=== PATIENT | female | born 1995 | race Caucasian/White ===

== ENCOUNTER 2020-08-25 22:58 | Observation (INO) ==
[2020-08-25 23:36] LABS: Basophils # 0.1 10*3/uL (0.0-0.2); Basophils % 0.5 % (0.0-0.8); Eosinophils # 0.1 10*3/uL (0.0-0.87); Eosinophils % 0.5 % (0.00-10.9); Hematocrit 38.9 VOL% (35.7-47.0); Hemoglobin 13.2 GM/DL (12.0-16.0); Immature Granulocytes % 0.6 %; Immature Granulocytes Absolute 0.11 #; Lymphocytes # 2.5 10*3/uL (1.4-4.0); Lymphocytes % 14.8 % (21.3-54.2); Mean Corpuscular HGB Conc 33.9 GM/DL (32-36); Mean Corpuscular Volume 82.9 FL (87-102); Monocytes % 5.1 % (1.7-12.7); Neutrophils % 78.5 % (38.7-73.9); Platelet Count 466 T/CUMM (130-400); Red Blood Count 4.69 MC/CUMM (3.8-5.5); Red Cell Distribution Width 14.3 % (9.3-17.3)
[2020-08-25] MEDS ORDERED: MORPHINE 4 MG/1 ML VIAL IV STA (23:54)
[2020-08-25] MEDS ORDERED: ONDANSETRON 4 MG/2 ML VIAL IV STA (23:54)
[2020-08-25] MEDS ORDERED: SODIUM CHLORIDE 0.9% 1,000 ML IV STA (23:54)
[2020-08-26 00:01] LABS: Alanine Aminotransferase 58 U/L (13-56); Albumin 3.5 G/DL (3.4-5.0); Alkaline Phosphatase 120 U/L (45-117); Aspartate Amino Transferase 24 U/L (0-37); Bilirubin,Total < 0.39 MG/DL (0.2-1.0); Blood Urea Nitrogen 16 MG/DL (7-18); Calcium 9.4 MG/DL (8.5-10.1); Estimated Glom Filtration Rate 99 ML/MIN; Glucose 120 MG/DL (74-106); Osmolality,Calculated 271.1 MOS/KG (273-304); Total Protein 7.8 G/DL (6.4-8.3)
[2020-08-26 00:07] LABS: Bacteria,Urine Occasional /HPF (Few); Bilirubin,Urine Negative (Negative); Blood, Urine Negative (Negative); Glucose,Urine (UA) Negative (Negative); Ketones,Urine Negative (Negative); Mucus,Urine Occasional /LPF (Occasional); Nitrite,Urine Negative (Negative); Protein,Urine Negative; RBC,Urine <1 /HPF (0-4); Squamous Epithelial Cell,Urine Occasional /HPF (0-10); Urine Appearance Slightly Hazy (Clear); Urine Color Yellow (Yellow); Urine Specific Gravity 1.012 (1.001-1.035); Urine Urobilinogen < 2.0 EU/DL (0.2-1.0); WBC,Urine 1 /HPF (0-6)
[2020-08-26] MEDS ORDERED: HYDROmorphone 2 MG/1 ML VIAL ONE (00:42)
[2020-08-26] MEDS ORDERED: HYDROmorphone 2 MG/1 ML VIAL IV STA ×2 (00:42→01:26)
[2020-08-26] MEDS ORDERED: ONDANSETRON 4 MG/2 ML VIAL IV PRN (01:58)
[2020-08-26] MEDS ORDERED: HYDROmorphone 2 MG/1 ML VIAL IV PRN (01:58)
[2020-08-26] MEDS ORDERED: LACTATED RINGERS 1,000 ML IV SCH (02:00)
[2020-08-26] MEDS ORDERED: ceFAZolin 2,000 MG in PREMIX 1 EACH IV ONE (07:30)
[2020-08-26] MEDS ORDERED: LIDOCAINE 2% 5 ML VIAL ONE (08:23)
[2020-08-26] MEDS ORDERED: SEVOFLURANE 1 UNIT/15 MINUTE INH ONE ×5 (08:23→09:59)
[2020-08-26] MEDS ORDERED: fentaNYL 100 MCG/2 ML VIAL ONE ×2 (08:23→09:32)
[2020-08-26] MEDS ORDERED: ONDANSETRON 4 MG/2 ML VIAL ONE (08:23)
[2020-08-26] MEDS ORDERED: MIDAZOLAM 2 MG/2 ML VIAL ONE ×2 (08:23→10:29)
[2020-08-26] MEDS ORDERED: propofoL 200 MG/20 ML VIAL IV ONE (08:23)
[2020-08-26] MEDS ORDERED: DEXAMETHASONE 4 MG/1 ML VIAL ONE (08:23)
[2020-08-26] MEDS ORDERED: KETOROLAC 30 MG/1 ML VIAL ONE (08:23)
[2020-08-26] MEDS ORDERED: ROCURONIUM 50 MG/5 ML VIAL IV ONE (08:23)
[2020-08-26] MEDS ORDERED: TISSUE ADHESIVE 1 EACH APPLICATOR TOP ONE (08:44)
[2020-08-26] MEDS ORDERED: LIDOCAINE 1% 20 ML VIAL ONE (08:44)
[2020-08-26] MEDS ORDERED: BUPIVACAINE MPF 0.25% 30 ML VIAL ONE (08:44)
[2020-08-26] MEDS ORDERED: PANTOPRAZOLE 40 MG TABLET PO SCH (09:00)
[2020-08-26] MEDS ORDERED: LACTATED RINGERS 1,000 ML IV ONE (09:31)
[2020-08-26] MEDS ORDERED: GLYCOPYRROLATE 0.4 MG/2 ML VIAL ONE (09:58)
[2020-08-26] MEDS ORDERED: NEOSTIGMINE 10 MG/10 ML VIAL ONE (09:58)
[2020-08-26 14:01] VITALS: BP 110/68
== END 2020-08-26 15:51 | disposition home or self-care (01) ==
LOC: N.EDINP 22:58 → N.ED 22:58 → N.EDINP 08-26 02:39 → N.3E 08-26 03:41
PROVIDERS: ADMIT Student in an Organized Health Care Education/Training Program; ATTEND Student in an Organized Health Care Education/Training Program
PROC: LAPCHOL (2020-08-26 09:00)